=== PATIENT | male | born 1935 | race American Indian/Alaskan Native ===

== ENCOUNTER → 2016-08-01 | Day surgery (SDC) | payer OTHER ==
[~2016-08-01] MED LIST: BUPIVACAINE/EPINEPHRINE 0.25% 50 ML VIAL ONE; KETOROLAC TROMETHAMINE 30 MG/ML (IVP) VIAL IV PUSH ONE; LACTATED RINGER'S 1000 ML INJ 1,000 ML ONE; LIDOCAINE 1%/EPINEPHrine 1:100,000 SOLN 20 ML VIAL ONE; PROPOFOL 200 MG/20 ML AMP IV ONE; SODIUM CHLOR 0.9% 250 ML BAG IV ONE; VANCOMYCIN HCL 1000 MG VIAL ONE
--- NOTE | 2016-08-01 12:42 | TN ---
cc: MUKESH BEARD M.D. DATE OF SURGERY 08/01/2016 PREOPERATIVE DIAGNOSIS Right inguinal hernia. POSTOPERATIVE DIAGNOSIS Right inguinal hernia. PROCEDURE Repair right inguinal hernia with mesh. ANESTHESIA TIVA. SURGEON Dr. Beard INDICATIONS This is a pleasant 80-year-old gentleman who has fairly symptomatic reducible right inguinal hernia. Plans were made for above. PROCEDURE The patient is taken to the operating room, placed in supine position. After TIVA anesthesia, his abdomen and groin are prepped with Betadine. Time-out is done. He is given preoperative antibiotic of vancomycin. We make an oblique incision overlying the internal and external ring, dissect down through Pat's fascia identifying the external oblique aponeurosis which is incised. The cord structures and the sac are then surrounded with a Irvine drain. We separate the indirect sac from the cord structures. He has a fairly sizable cord lipoma which is easily reduced. The floor of his canal is somewhat weakened as well. Once we reduce the entirety of the hernia sac, we then place a piece of polypropylene mesh, secure it to the pubic tubercle, Shaheed's ligament and the iliopubic tract out laterally. Tails were then fashioned and secured to themselves and then secured to the internal oblique aponeurosis, all done with 0 Ethibond suture. The medial edge is secured to the conjoined tendon with a 0 Ethibond. After this was done, we then snugged up the crotch of the mesh to recreate the internal ring leaving enough laxity for the cord structures of the vas deferens and the blood vessels. After that was done, we then closed the external oblique aponeurosis with a 2-0 Vicryl, Pat's with a 2-0 Vicryl and the skin with 4-0 Vicryl. Steri-Strips applied, sterile bandage applied. The patient tolerated the procedure well and had no immediate postop complication. Mukesh Beard MD JROSIBEL/DON /12:25 PM /12:33 PM
== END | disposition home or self-care (01) ==
LOC: ESDC 08:36
PROVIDERS: ATTEND Surgery
DX: K40.90 Unilateral inguinal hernia, without obstruction or gangrene, not specified as recurrent (principal)
CPT/HCPCS: 00830; 49505; C1781; J1885; J3010; J3370; J7050; J7120

== ENCOUNTER 2017-11-10 09:02 | Emergency (ER) | payer OTHER ==
[~2017-11-10] VITALS: Ht 177.8 cm; Wt 83.5 kg
[2017-11-10 09:06] VITALS: BP 160/83; PULSE 75; RESP 16; TEMP 98; O2SAT 92
[2017-11-10 09:18] VITALS: BP 163/90; PULSE 89; RESP 21; O2SAT 96
--- NOTE | 2017-11-10 09:27 | PD ---
HPI Chief Complaint: Complaint Time Seen by Provider: 09:20 Travel History International Travel<30 days: No Contact w/Intl Traveler<30days: No Traveled to known affect area: No History of Present Illness HPI The patient is a 82-year-old male who presents to the emergency department for hematuria. The patient states he developed some right lower quadrant abdominal pain several days ago which resolved after 1 day. The patient then developed hematuria. He does note gross blood via urination for the last 2 days but denies any dysuria, frequency, or urgency. He does have a previous history of hematuria secondary to nephrolithiasis and underwent lithotripsy with a complication involving the left kidney and bleeding at that time. However, he states that procedure was done years ago. He denies any nausea, vomiting, or upper abdominal pain, or back pain. Symptoms are moderate. He does take a baby aspirin daily but does not take any other anticoagulants. The patient is followed by his oncologist "Dr. De La Rosa "who is located in [place], [place], for myeloproliferative disorder with recent elevated white count of 21,000. He is not currently on chemotherapy. He is also seen a urologist in the past, Dr. Woodard. The patient currently denies any abdominal pain. 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) Kidney Stones: Yes Reproductive: Yes (BPH) Influenza Vaccination: No ?: Not Past Surgical History Appendectomy: Yes Cholecystectomy: Yes Other Surgery: Yes (HERNIA, LITHOTRIPSY) Social History Alcohol Use: No (RARELY) Tobacco Use: Yes Substance Use: No Allergies-Medications (Allergen,Severity, Reaction): Coded Allergies: Penicillins (Verified Allergy, Unknown, 11/10/17) Reported Meds & Prescriptions Reported Meds & Active Scripts Active Reported Probiotic (Saccharomyces Boulardii) 250 Mg Cap 250 Mg PO DAILY Aspirin 81 Mg Chew 81 Mg CHEW DAILY Sentry Adults Under 50 (Multiple Vitamins W/ Minerals) 18 Mg-500 Mcg-300 Mcg- 250 Mcg Tab 1 Tab PO DAILY Vitamin B-12 (Cyanocobalamin) 1,000 Mcg Tab 1,000 Mcg PO DAILY Vitamin C (Ascorbic Acid) 250 Mg Chew 500 Mg CHEW DAILY Niacin 500 Mg Tab 500 Mg PO DAILY Sertraline (Sertraline HCl) 100 Mg Tab 100 Mg PO DAILY Doxazosin (Doxazosin Mesylate) 8 Mg Tab 8 Mg PO DAILY Finasteride 5 Mg Tab 5 Mg PO DAILY Do not crush. Review of Systems Except as stated in HPI: all other systems reviewed are Neg General / Constitutional: No: Fever HENT: No: Lightheadedness Cardiovascular: No: Chest Pain or Discomfort Respiratory: No: Shortness of Breath Gastrointestinal: Positive: Abdominal Pain (Right lower quadrant pain 2 days ago which has), No: Nausea, Vomiting, Diarrhea Genitourinary: Positive: Hematuria, No: Urgency, Frequency, Dysuria Neurologic: No: Dizziness Physical Exam Narrative GENERAL: Awake, alert, pleasant 82-year-old male who appears his stated age and is in no acute respiratory distress. SKIN: Focused skin assessment warm/dry. HEAD: Atraumatic. Normocephalic. EYES: No injection or drainage. NECK: Trachea midline. No JVD. CARDIOVASCULAR: Regular rate and rhythm. No murmur appreciated. RESPIRATORY: No accessory muscle use. Clear to auscultation. Breath sounds equal bilaterally. GASTROINTESTINAL: Abdomen soft, non-tender, nondistended. Well-healed scar right lower quadrant. No rebound tenderness. Genitourinary: Uncircumcised phallus, skin is easily retracted, no visible blood at the meatus. Back: No CVA tenderness. MUSCULOSKELETAL: No obvious deformities. No clubbing. No cyanosis. No edema. NEUROLOGICAL: Awake and alert. No obvious cranial nerve deficits. Motor grossly within normal limits. Normal speech. PSYCHIATRIC: Appropriate mood and affect; insight and judgment normal. Data Data Last Documented VS Vital Signs Date Time Temp Pulse Resp B/P (MAP) Pulse Ox O2 Delivery O2 Flow Rate FiO2 11/10/17:18 89 21 163/90 (114) 96 Room Air 11/10/17 09:06 98.0 Orders Orders Complete Blood Count With Diff (11/10/17 09:20) Comprehensive Metabolic Panel (11/10/17 09:20) Urinalysis - C+S If Indicated (11/10/17 09:20) Ct Abd/Pel W/O Iv Contrast (11/10/17 09:20) Iv Access Insert/Monitor (11/10/17 09:20) Ecg Monitoring (11/10/17 09:20) Oximetry (11/10/17 09:20) Sodium Chloride 0.9% Flush (Ns Flush) (11/10/17 09:30) Creatine Kinase (Cpk) (11/10/17 09:20) Urine Culture (11/10/17 08:00) Ciprofloxacin 400 Mg Premix (Cipro 400 M (11/10/17 11:15) Ed Discharge Order (11/10/17 12:06) Labs Laboratory Tests Test 11/10/17 08:00 11/10/17 09:30 Urine Color RED Urine Turbidity HAZY Urine pH 6.0 Urine Specific [place] 1.011 Urine Protein 100 mg/dL Urine Glucose (UA) NEG mg/dL Urine Ketones NEG mg/dL Urine Occult Blood LARGE Urine Nitrite NEG Urine Bilirubin NEG Urine Urobilinogen LESS THAN 2.0 MG/DL Urine Leukocyte Esterase TRACE Urine RBC /hpf Urine WBC 16 /hpf Urine Renal Epithelial Cells 5 /hpf Microscopic Urinalysis Comment CULTURE INDICATED White Blood Count 23.3 TH/MM3 Red Blood Count 5.76 MIL/MM3 Hemoglobin 14.1 GM/DL Hematocrit 44.3 % Mean Corpuscular Volume 76.9 FL Mean Corpuscular Hemoglobin 24.5 PG Mean Corpuscular Hemoglobin Concent 31.9 % Red Cell Distribution Width 17.7 % Platelet Count 321 TH/MM3 Mean Platelet Volume 9.1 FL Neutrophils (%) (Auto) 81.4 % Lymphocytes (%) (Auto) 8.7 % Monocytes (%) (Auto) 7.2 % Eosinophils (%) (Auto) 2.0 % Basophils (%) (Auto) 0.7 % Neutrophils # (Auto) 19.0 TH/MM3 Lymphocytes # (Auto) 2.0 TH/MM3 Monocytes # (Auto) 1.7 TH/MM3 Eosinophils # (Auto) 0.5 TH/MM3 Basophils # (Auto) 0.2 TH/MM3 CBC Comment AUTO DIFF Differential Total Cells Counted 100 Neutrophils % (Manual) 77 % Band Neutrophils % 11 % Lymphocytes % 7 % Monocytes % 3 % Eosinophils % 1 % Neutrophils # (Manual) 20.7 TH/MM3 Myelocytes 1 % Differential Comment FINAL DIFF MANUAL Platelet Estimate NORMAL Platelet Morphology Comment NORMAL Ovalocytes 1+ Blood Urea Nitrogen 15 MG/DL Creatinine 1.14 MG/DL Random Glucose 117 MG/DL Total Protein 6.3 GM/DL Albumin 3.8 GM/DL Calcium Level 8.5 MG/DL Alkaline Phosphatase 104 U/L Aspartate Amino Transf (AST/SGOT) 23 U/L Alanine Aminotransferase (ALT/SGPT) 20 U/L Total Bilirubin 0.4 MG/DL Sodium Level 144 MEQ/L Potassium Level 4.3 MEQ/L Chloride Level 112 MEQ/L Carbon Dioxide Level 26.6 MEQ/L Anion Gap 5 MEQ/L Estimat Glomerular Filtration Rate 61 ML/MIN Total Creatine Kinase 33 U/L [facility] Medical Decision Making Medical Screen Exam Complete: Yes Emergency Medical Condition: Yes Medical Record Reviewed: Yes Interpretation(s) Laboratory Tests Test 11/10/17 08:00 11/10/17 09:30 Urine Color RED Urine Turbidity HAZY Urine pH 6.0 Urine Specific [place] 1.011 Urine Protein 100 mg/dL Urine Glucose (UA) NEG mg/dL Urine Ketones NEG mg/dL Urine Occult Blood LARGE Urine Nitrite NEG Urine Bilirubin NEG Urine Urobilinogen LESS THAN 2.0 MG/DL Urine Leukocyte Esterase TRACE Urine RBC /hpf Urine WBC 16 /hpf Urine Renal Epithelial Cells 5 /hpf Microscopic Urinalysis Comment CULTURE INDICATED White Blood Count 23.3 TH/MM3 Red Blood Count 5.76 MIL/MM3 Hemoglobin 14.1 GM/DL Hematocrit 44.3 % Mean Corpuscular Volume 76.9 FL Mean Corpuscular Hemoglobin 24.5 PG Mean Corpuscular Hemoglobin Concent 31.9 % Red Cell Distribution Width 17.7 % Platelet Count 321 TH/MM3 Mean Platelet Volume 9.1 FL Neutrophils (%) (Auto) 81.4 % Lymphocytes (%) (Auto) 8.7 % Monocytes (%) (Auto) 7.2 % Eosinophils (%) (Auto) 2.0 % Basophils (%) (Auto) 0.7 % Neutrophils # (Auto) 19.0 TH/MM3 Lymphocytes # (Auto) 2.0 TH/MM3 Monocytes # (Auto) 1.7 TH/MM3 Eosinophils # (Auto) 0.5 TH/MM3 Basophils # (Auto) 0.2 TH/MM3 CBC Comment AUTO DIFF Differential Total Cells Counted 100 Neutrophils % (Manual) 77 % Band Neutrophils % 11 % Lymphocytes % 7 % Monocytes % 3 % Eosinophils % 1 % Neutrophils # (Manual) 20.7 TH/MM3 Myelocytes 1 % Differential Comment FINAL DIFF MANUAL Platelet Estimate NORMAL Platelet Morphology Comment NORMAL Ovalocytes 1+ Blood Urea Nitrogen 15 MG/DL Creatinine 1.14 MG/DL Random Glucose 117 MG/DL Total Protein 6.3 GM/DL Albumin 3.8 GM/DL Calcium Level 8.5 MG/DL Alkaline Phosphatase 104 U/L Aspartate Amino Transf (AST/SGOT) 23 U/L Alanine Aminotransferase (ALT/SGPT) 20 U/L Total Bilirubin 0.4 MG/DL Sodium Level 144 MEQ/L Potassium Level 4.3 MEQ/L Chloride Level 112 MEQ/L Carbon Dioxide Level 26.6 MEQ/L Anion Gap 5 MEQ/L Estimat Glomerular Filtration Rate 61 ML/MIN Total Creatine Kinase 33 U/L CT abdomen and pelvis without contrast reveals 3 small stones right kidney 2 mm stone right UVJ. Enlarged prostate distended bladder, large diverticulum with stones. At least one small stone in the bladder as well. Massive splenic megaly. Differential Diagnosis Differential diagnosis includes gross hematuria, hemorrhagic cystitis, bladder tumor, bladder cancer, coagulopathy, symptomatic anemia, nephrolithiasis, hyperbilirubinemia, rhabdomyolysis. Narrative Course IV was established, labs are drawn and sent, and the patient was placed on cardiac telemetry monitoring and continuous pulse oximetry monitoring. UA was sent to lab. Noncontrast CT of the abdomen and pelvis was performed. UA reveals innumerable RBCs, does have 16 WBCs, however, appears to be more related to the patient is currently asymptomatic, will discharge home with pain medications as needed if pain returns. He is advised to follow-up with his urologist, Dr. brizuela. Return if symptoms worsen or progress. The patient does have elevated white count, but has history of myeloproliferative disorder with last white count in the 20s, bands are slightly elevated, will treat with Cipro. Diagnosis Primary Impression: Nephrolithiasis Additional Impression: Gross hematuria Referrals: Evens Woodard MD call for appointment Patient Instructions: General Instructions Additional Instructions: Medications as directed. Please provide the patient a copy of his CT results and lab results at discharge. Follow-up with your primary physician and your urologist, Dr. Woodard. Med/Other Pt SpecificInfo: Prescription(s) given Scripts Ciprofloxacin (Cipro) 500 Mg Tab 500 MG PO BID for Infection for 7 Days, #14 TAB 0 Refills Prov: Pepe Christianson MD 11/10/17 Disposition: DISCHARGE HOME Condition: Stable Pepe Christianson MD Nov 10, 2017 09:27
[2017-11-10] MEDS ORDERED: SODIUM CHLORIDE 0.9% FLUSH 10 ML FLUSH IV FLUSH PRN (09:30)
[2017-11-10] MEDS ORDERED: VITA250C3 CHEW (09:48)
[2017-11-10] MEDS ORDERED: MULT1TAB83 PO (09:48)
[2017-11-10] MEDS ORDERED: DOXA1TAB43 PO (09:48)
[2017-11-10] MEDS ORDERED: NIAC500T5 PO (09:48)
[2017-11-10] MEDS ORDERED: SERT-129 PO (09:48)
[2017-11-10] MEDS ORDERED: ASPI-516 CHEW (09:48)
[2017-11-10] MEDS ORDERED: VITA10002 PO (09:48)
[2017-11-10] MEDS ORDERED: FINA5TAB2 PO (09:48)
[2017-11-10] MEDS ORDERED: SACC1CAP3 PO (09:48)
[2017-11-10 09:52] LABS: BASOPHIL # 0.2 TH/MM3 (0-0.2); BASOPHIL % 0.7 % (0.0-2.0); EOSINOPHIL # 0.5 TH/MM3 (0-0.4); HEMATOCRIT 44.3 % (39.0-51.0); HEMOGLOBIN 14.1 GM/DL (13.0-17.0); LYMPH % 8.7 % (9.0-44.0); MEAN CELL VOLUME 76.9 FL (80.0-100.0); MEAN CORPUSCULAR HEMOGLOBIN 24.5 PG (27.0-34.0); MEAN CORPUSCULAR HGB CONC 31.9 % (32.0-36.0); MEAN PLATELET VOLUME 9.1 FL (7.0-11.0); MONO % 7.2 % (0.0-8.0); MONOCYTE # 1.7 TH/MM3 (0-0.9); NEUT % 81.4 % (16.0-70.0); PLATELET COUNT 321 TH/MM3 (150-450); RED BLOOD COUNT 5.76 MIL/MM3 (4.50-5.90); RED CELL DISTRIBUTION WIDTH 17.7 % (11.6-17.2); WHITE BLOOD COUNT 23.3 TH/MM3 (4.0-11.0)
[2017-11-10 10:16] LABS: ALBUMIN 3.8 GM/DL (3.4-5.0); AST (GOT) 23 U/L (15-37); BICARBONATE 26.6 MEQ/L (21.0-32.0); BLOOD UREA NITROGEN 15 MG/DL (7-18); CALCIUM 8.5 MG/DL (8.5-10.1); CHLORIDE 112 MEQ/L (98-107); CREATININE 1.14 MG/DL (0.60-1.30); GLOMERULAR FILTRATION RATE 61 ML/MIN (>89); GLUCOSE,RANDOM 117 MG/DL (74-106); SODIUM (NA) 144 MEQ/L (136-145)
[2017-11-10 10:19] LABS: ALKALINE PHOSPHATASE 104 U/L (45-117); ALT (GPT) 20 U/L (12-78); TOTAL BILIRUBIN ADULT 0.4 MG/DL (0.2-1.0); TOTAL PROTEIN 6.3 GM/DL (6.4-8.2)
[2017-11-10 10:22] LABS: BILIRUBIN, URINE NEG (NEG); BLOOD, URINE LARGE (NEG); GLUCOSE,URINE NEG (NEG); KETONE, URINE NEG (NEG); NITRITE,URINE NEG (NEG); RENAL EPITHELIAL CELLS 5 /hpf; URINE LEUKOCYTE ESTERASE TRACE (NEG)
[2017-11-10 10:23] LABS: URINE COLOR RED (YELLW/STRAW)
[2017-11-10 10:25] LABS: BANDS 11 % (0-6); LYMPHOCYTES 7 % (9-44); MONOCYTES 3 % (0-8); MYELOCYTES 1 % (0-0); NEUTROPHIL # MANUAL DIFF 20.7 TH/MM3 (1.8-7.7); POLYS (SEG NEUTROPHILS) 77 % (16-70)
[2017-11-10 10:26] LABS: OVALOCYTES 1+ (NORMAL)
[2017-11-10 11:00] VITALS: BP 149/70; PULSE 73; RESP 18; O2SAT 95
[2017-11-10] MEDS ORDERED: CIPROFLOXACIN 400 MG PREMIX 200 ML IV ONE (11:15)
--- NOTE | 2017-11-10 11:49 | RADRPT ---
EXAM DATE/TIME: 11/10/2017 11:25 [facility] COMPARISON: No previous studies available for comparison. INDICATIONS : Blood in urine since Saturday. ORAL CONTRAST: No oral contrast ingested. RADIATION DOSE: 11.95 CTDIvol (mGy) MEDICAL HISTORY : Renal calculi. Myeloproliferatine. SURGICAL HISTORY : Inguinal hernia repair. Lithotripsy ENCOUNTER: Initial ACUITY: 2 days PAIN SCALE: 0/10 LOCATION: abdominal TECHNIQUE: Volumetric scanning of the abdomen and pelvis was performed. Using automated exposure control and ad justment of the mA and/or kV according to patient size, radiation dose was kept as low as reasonably achievable to obtain optimal diagnostic quality images. DICOM format image data is available electro nically for review and comparison. FINDINGS: Massive splenomegaly . Inhomogeneous liver liver. Surgical clips gallbladder fossa. Pancreas and adrenal glands unremarkable. 3.3 symmetr left renal cyst 3 stones right kidney largest measuring 7 mm without perinephric stranding. There is 2 mm stone at t he right UVJ. Bladder is distended with large prostate. There is a larged bladder diverticulum measuring 7 cm with multiple small stones. Multiple stones are seen in the bladder as well.. The abdominal mike intact There is no free fluid or free air CONCLUSION: 3 small stones right kidney 2 mm stone right UVJ Enlarged prostate distended bladder the large diverticulum with stones. At least one small stone in the bladder as well. Massive splenomegaly. Telly Mendoza MD FACR on November 10, 2017 at 11:38 Board Certified Radiologist. This report was verified electronically.
[2017-11-10] MEDS ORDERED: CIPR-9 PO (12:09)
[2017-11-10 12:17] VITALS: BP 147/91; PULSE 73; RESP 18; O2SAT 95
[2017-11-10 13:47] VITALS: BP 150/72; PULSE 77; RESP 18; O2SAT 95
== END 2017-11-10 14:05 | disposition home or self-care (01) ==
LOC: NEPC 09:02
DX: N20.0 Calculus of kidney (principal); N21.0 Calculus in bladder; R31.0 Gross hematuria; N40.0 Benign prostatic hyperplasia without lower urinary tract symptoms; C94.6 Myelodysplastic disease, not elsewhere classified; F32.9 Major depressive disorder, single episode, unspecified; Z72.0 Tobacco use
CPT/HCPCS: 74176; 80053; 81001; 82550; 85007; 85027; 87086; 96365; 99284; J0744

== ENCOUNTER 2017-12-26 16:00 | Observation (INO) | payer OTHER ==
[~2017-12-26] VITALS: Ht 175.3 cm; Wt 85.6 kg
[~2017-12-26 16:00] MED LIST changes: +ASPI-516 CHEW; -BUPIVACAINE/EPINEPHRINE 0.25% 50 ML VIAL ONE; +CIPR-9 PO; +DOXA1TAB43 PO; +FINA5TAB2 PO; -KETOROLAC TROMETHAMINE 30 MG/ML (IVP) VIAL IV PUSH ONE; -LACTATED RINGER'S 1000 ML INJ 1,000 ML ONE; -LIDOCAINE 1%/EPINEPHrine 1:100,000 SOLN 20 ML VIAL ONE; +MULT1TAB83 PO; +NIAC500T5 PO; -PROPOFOL 200 MG/20 ML AMP IV ONE; +SACC1CAP3 PO; +SERT-129 PO; -SODIUM CHLOR 0.9% 250 ML BAG IV ONE; -VANCOMYCIN HCL 1000 MG VIAL ONE; +VITA10002 PO; +VITA250C3 CHEW
[2017-12-26 17:46] VITALS: BP 185/84; PULSE 72; RESP 20; TEMP 98.3; O2SAT 93
[2017-12-26 20:00] VITALS: BP 178/86; PULSE 69; RESP 18; TEMP 97.9; O2SAT 94
[2017-12-26] MEDS: DOCUSATE SODIUM 100 MG CAP PO SCH (21:00)
[2017-12-26] MEDS: CIPROFLOXACIN 500 MG TAB PO SCH (21:04)
[2017-12-26] MEDS: MULTIVITAMINS/MINERALS THERAPEUTIC TAB PO SCH (21:04)
[2017-12-26] MEDS: ACETAMINOPHEN/HYDROcodone 325 MG/5 MG TAB PO PRN (22:19)
[2017-12-27] VITALS: BP 194/79; PULSE 65; RESP 18; TEMP 98.2; O2SAT 95
[2017-12-27 00:46] VITALS: BP 168/84
[2017-12-27 08:00] VITALS: BP 166/72; PULSE 61; RESP 18; TEMP 97.9; O2SAT 92
[2017-12-27] MEDS: LACTOBACILLUS ACIDOPHILUS 1 GM PACKET PO SCH (09:00)
[2017-12-27] MEDS ORDERED: MINERALS PO SCH (09:00)
[2017-12-27] MEDS ORDERED: NON-FORMULARY DRUG (Saccharomyces Boulardii (Probiotic) 250 MG) PO SCH (09:00)
[2017-12-27] MEDS ORDERED: MULTIPLE VITAMINS PO SCH (09:00)
[2017-12-27] MEDS ORDERED: NON-FORMULARY DRUG (Ascorbic Acid (Vitamin C) 500 MG) CHEW SCH (09:00)
[2017-12-27] MEDS ORDERED: NON-FORMULARY DRUG (Niacin 500 MG) PO SCH (09:00)
[2017-12-27] MEDS: SERTRALINE HCL 100 MG TAB PO SCH (09:06)
[2017-12-27] MEDS: NIACIN 100 MG TAB PO SCH (09:07)
[2017-12-27] MEDS: MULTIVITAMINS/MINERALS THERAPEUTIC TAB PO SCH (09:07)
[2017-12-27] MEDS: DOCUSATE SODIUM 100 MG CAP PO SCH ×2 (09:07→20:07)
[2017-12-27] MEDS: DOXAZOSIN MESYLATE 4 MG TAB PO SCH (09:07)
[2017-12-27] MEDS: ASCORBIC ACID 500 MG TAB PO SCH (09:08)
[2017-12-27] MEDS: CIPROFLOXACIN 500 MG TAB PO SCH ×2 (09:08→20:03)
[2017-12-27] MEDS: CYANOCOBALAMIN 1,000 MCG TAB PO SCH (09:08)
[2017-12-27] MEDS: FINASTERIDE 5 MG TAB PO SCH (09:08)
[2017-12-27] MEDS: ACETAMINOPHEN/HYDROcodone 325 MG/5 MG TAB PO PRN ×2 (11:29→20:03)
[2017-12-27 12:00] VITALS: BP 121/70; PULSE 71; RESP 18; TEMP 97.3; O2SAT 91
--- NOTE | 2017-12-27 13:25 | HHI.PR ---
Subjective Patient symptoms today 82y.o m who was admitted yesterday after cystoscopy at the office and development of hematuria. He has clark catheter now, 3 way was on CBI. Urine was clear, CBI was closed and later his catheetr got clogged and he developed clot retention. Had back and s/pubic pain. clots were irrigated out. He has no pain now and feels better. CBI left closed Objective Vital Signs Vital Signs Date Time Temp Pulse Resp B/P (MAP) Pulse Ox O2 Delivery O2 Flow Rate FiO2 12/27/17 00:46 168/84 (112) Automatic Cuff 12/27/17 00:00 98.2 65 18 194/79 (117) 95 12/26/17 20:00 97.9 69 18 178/86 (116) 94 12/26/17 17:46 98.3 72 20 185/84 (117) 93 Intake & Output 12/27/17 12/27/17 06:59 18:59 Intake Total 480 ml Output Total 2500 ml 300 ml Balance -2020 ml -300 ml Intake Oral 480 ml Output Urine Total 2500 ml 300 ml # Bowel Movements 0 Objective Remarks NAD RRR Clear breath sounds Clark in in place, urine is clear Medications and IVs Current Medications Medications (Trade) Dose Ordered Sig/Maria R Route Start Time Stop Time Status Last Admin (Colace) 100 mg BID PO 12/26/17 21:00 12/27/17 09:07 ([place] 5-325 Mg) 2 tab Q6H PRN PO 12/26/17 19:45 12/27/17 11:29 (Cipro) 500 mg Q12HR PO 12/26/17 21:00 12/27/17 09:08 (Vitamin B12) 1,000 mcg DAILY PO 12/27/17 09:00 12/27/17 09:08 (Cardura) 8 mg DAILY PO 12/27/17 09:00 12/27/17 09:07 (Proscar) 5 mg DAILY PO 12/27/17 09:00 12/27/17 09:08 (Zoloft) 100 mg DAILY PO 12/27/17 09:00 12/27/17 09:06 (Vitamin C) 500 mg DAILY PO 12/27/17 09:00 12/27/17 09:08 (Theragran M Tab) 1 tab DAILY PO 12/26/17 19:45 12/27/17 09:07 (Niacin) 500 mg DAILY PO 12/27/17 09:00 12/27/17 09:07 (Lactinex Pkt) 1 gm DAILY PO 12/27/17 09:00 12/27/17 09:00 Assessment and Plan Assessment and Plan 82 y.o M with BPH and hematuria - Continue current management - Continue observation - Keep CBI closed - If urine remains clear and no clots, can be d/c home with Jeff Sanchez Dec 27, 2017 13:25
[2017-12-27] MEDS: OXYBUTYNIN CHLORIDE 5 MG TAB PO SCH ×2 (13:30→18:14)
[2017-12-27 16:00] VITALS: BP 122/62; PULSE 70; RESP 16; TEMP 97.4; O2SAT 92
[2017-12-27 20:00] VITALS: BP 174/80; PULSE 76; RESP 22; TEMP 97.6; O2SAT 93
[2017-12-27] MEDS: BELLADONNA ALKALOIDS/OPIUM 60 MG SUPP RECTAL PRN (23:32)
[2017-12-28] VITALS: BP 179/82; PULSE 79; RESP 22; TEMP 97.4; O2SAT 94
[2017-12-28] MEDS: ACETAMINOPHEN/HYDROcodone 325 MG/5 MG TAB PO PRN (04:15)
[2017-12-28 05:04] VITALS: BP 149/73; PULSE 87; RESP 20; TEMP 97.4; O2SAT 93
[2017-12-28] MEDS: LACTOBACILLUS ACIDOPHILUS 1 GM PACKET PO SCH (07:54)
[2017-12-28] MEDS: NIACIN 100 MG TAB PO SCH (07:54)
[2017-12-28] MEDS: CYANOCOBALAMIN 1,000 MCG TAB PO SCH (07:55)
[2017-12-28] MEDS: MULTIVITAMINS/MINERALS THERAPEUTIC TAB PO SCH (07:55)
[2017-12-28] MEDS: FINASTERIDE 5 MG TAB PO SCH (07:55)
[2017-12-28] MEDS: ASCORBIC ACID 500 MG TAB PO SCH (07:55)
[2017-12-28] MEDS: DOXAZOSIN MESYLATE 4 MG TAB PO SCH (07:56)
[2017-12-28] MEDS: SERTRALINE HCL 100 MG TAB PO SCH (07:56)
[2017-12-28] MEDS: CIPROFLOXACIN 500 MG TAB PO SCH (07:56)
[2017-12-28] MEDS: BELLADONNA ALKALOIDS/OPIUM 60 MG SUPP RECTAL PRN ×2 (07:57→14:03)
[2017-12-28] MEDS: DOCUSATE SODIUM 100 MG CAP PO SCH (07:57)
[2017-12-28 08:00] VITALS: BP 161/76; PULSE 73; RESP 18; TEMP 97.6; O2SAT 92
[2017-12-28 12:00] VITALS: BP 112/57; PULSE 88; RESP 18; TEMP 97.6; O2SAT 94
--- NOTE | 2017-12-28 12:16 | HHI.PR ---
Subjective Patient symptoms today catheter exchanged earlier this morning after clotting off. Has been flowing well since 5 am. Denies abdominal pain, fevers, chills, nausea. Objective Vital Signs Vital Signs Date Time Temp Pulse Resp B/P (MAP) Pulse Ox O2 Delivery O2 Flow Rate FiO2 12/28/17 08:00 97.6 73 18 161/76 (104) 92 12/28/17 05:04 97.4 87 20 149/73 (98) 93 12/28/17 00:00 97.4 79 22 179/82 (114) 94 12/27/17 20:00 97.6 76 22 174/80 (111) 93 12/27/17 16:00 97.4 70 16 122/62 (82) 92 Intake & Output 12/28/17 12/28/17 07:00 19:00 Intake Total 1840 ml Output Total 2250 ml 600 ml Balance -410 ml -600 ml Intake Oral 1840 ml Output Urine Total 2250 ml 600 ml # Bowel Movements 2 Objective Remarks NAD RRR Clear breath sounds Clark in in place, urine is clear, very slow CBI drip Ext NT. No c/c/e Medications and IVs Current Medications Medications (Trade) Dose Ordered Sig/Maria R Route Start Time Stop Time Status Last Admin (Colace) 100 mg BID PO 12/26/17 21:00 12/28/17 07:57 ([place] 5-325 Mg) 2 tab Q6H PRN PO 12/26/17 19:45 12/28/17 04:15 (Cipro) 500 mg Q12HR PO 12/26/17 21:00 12/28/17 07:56 (Vitamin B12) 1,000 mcg DAILY PO 12/27/17 09:00 12/28/17 07:55 (Cardura) 8 mg DAILY PO 12/27/17 09:00 12/28/17 07:56 (Proscar) 5 mg DAILY PO 12/27/17 09:00 12/28/17 07:55 (Zoloft) 100 mg DAILY PO 12/27/17 09:00 12/28/17 07:56 (Vitamin C) 500 mg DAILY PO 12/27/17 09:00 12/28/17 07:55 (Theragran M Tab) 1 tab DAILY PO 12/26/17 19:45 12/28/17 07:55 (Niacin) 500 mg DAILY PO 12/27/17 09:00 12/28/17 07:54 (Lactinex Pkt) 1 gm DAILY PO 12/27/17 09:00 12/28/17 07:54 (Ditropan) 5 mg Q12HR PO 12/27/17 13:30 Future Hold (B & O Supp) 60 mg Q6H PRN RECTAL 12/27/17 23:15 12/28/17 07:57 Assessment and Plan Assessment and Plan 82 y.o M with BPH and hematuria -clamp CBI -Observe rest of this afternoon. If no issues, d/c home with clark. will remove on December 30. Evens Woodard MD Dec 28, 2017 12:16
[2017-12-28] MEDS ORDERED: DOCU1CAP39 PO (12:18)
[2017-12-28] MEDS ORDERED: HYDR-3516 PO (12:18)
== END 2017-12-28 17:26 | disposition home or self-care (01) ==
LOC: N07A 16:00
PROVIDERS: ADMIT Urology; ATTEND Urology
DX: R31.9 Hematuria, unspecified (principal); N20.0 Calculus of kidney; N40.0 Benign prostatic hyperplasia without lower urinary tract symptoms
CPT/HCPCS: G0378 ×4

== ENCOUNTER 2018-02-04 05:29 | Inpatient (IN) ==
[2018-02-04] MEDS ORDERED: Metoprolol Tartrate 25 MG Tablet PO SCH (06:30)
[2018-02-04] MEDS ORDERED: Chlorhexidine Gluconate 2% 1 Pack (2 Cloths) TOPICAL SCH (06:30)
[2018-02-04] MEDS ORDERED: Sodium Chlor 0.9% Inj 500 ML IV.SIG SCH (07:00)
[2018-02-04] MEDS ORDERED: [UNRECOGNIZED DRUG - OTHER] OTHER SCH (07:00)
[2018-02-04 07:40] LABS: INR 1.2 Ratio
[2018-02-04] MEDS ORDERED: ceFAZolin 2 GM Premix Inj 2 GM/50 ML PIGGYBACK IV.SIG ONE (07:45)
[2018-02-04] MEDS ORDERED: Calcium Chloride Inj 1 GM/10 ML Syringe ONE (08:42)
[2018-02-04] MEDS ORDERED: Sugammadex Inj 200 MG/2 ML Vial IV.PUSH ONE (10:09)
[2018-02-04 10:31] LABS: Hematocrit 35.2 % (39.0-51.0); Hemoglobin 11.1 gm/dL (13.0-17.0)
[2018-02-04 10:39] LABS: Activated Partial Thrombo Time 28.1 sec (24.3-30.1); INR 1.3 Ratio; Prothrombin Time 13.2 sec (9.8-11.6)
[2018-02-04] MEDS ORDERED: Morphine Inj 4 MG/ML Vial IV.PUSH PRN (10:46)
[2018-02-04] MEDS ORDERED: Belladonna Alkaloid/Opium 60 MG Supp RECTAL PRN (10:52)
[2018-02-04] MEDS ORDERED: Non-Formulary Drug (Albuterol Sulfate 2 PUFF) INHALATION PRN (10:53)
--- NOTE | 2018-02-04 10:53 | MP ---
cc: Celestino Whitlock MD DATE OF OPERATION: 02/04/2018 PREOPERATIVE DIAGNOSES: 1. 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 3. Vesical lithiasis. POSTOPERATIVE DIAGNOSES: 1. 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 3. Vesical lithiasis. PROCEDURE PERFORMED: 1. Simple retropubic prostatectomy for clinically benign disease. 2. Left bladder diverticulectomy. 3. Left ureteral reimplantation. 4. Left double-J stent insertion 6-Liberian x 26 cm. SURGEON: Dr. Evens Woodard. CAREER AND TRANSITION TEACHER: Dr. Celestino Whitlock NOTE IN DETAIL: This gentleman presented to our office for the above-mentioned problem. He has been followed by other urologists for this issue in the past. He finally had reached the point that something had to be done, his prostate was estimated to be well in excess of 100 grams and, given the fact that he had a bladder diverticulum on the left with stones present, it was nearly the size of the bladder itself. It was felt that an open procedure was appropriate. He received appropriate preoperative antibiotics in the holding area. He was taken to the operating room, given a general anesthetic. A timeout was taken for identification purposes. He was then placed in a slightly hyperextended supine position and he was then prepped and draped in a sterile fashion and a Monaco catheter was inserted. A midline incision was made from the symphysis pubis to the umbilicus and carried down into the space of Retzius, which was then developed and packed off bilaterally. Appropriate sutures were placed on the prostate itself and then a transverse capsulotomy performed. The gland was rather large, it was very vascular indeed. There was a large quantity of purulent material extruded from a pocket within the prostate, so the prostate had clearly outgrown its own blood supply. Once this was completed and hemostasis was tended with the use of the electrocautery and multiple sutures, we then turned our attention to the diverticulum on the left-hand side, which with blunt and sharp dissection, was taken off of the bladder wall. It was also significantly adhesed to the left ureter. This caused us to have to actually peel the ureter up, off and you could just peel the bladder off, but this was not the case here. We had to dissect the ureter away from the bladder and from the diverticulum. We used an feeding tube to protect the ureter during the process of this. Ultimately, we got the diverticulum completely off. All of the stones were taken out in their entirety and submitted for identification purposes/documentation purposes. The 6-Liberian x 26 cm double-J stent was placed up the left ureter. The ureter was laid back into its normal anatomic position and the bladder mucosa pexed with multiple interrupted 4-0 Vicryl ligatures to prevent this from retracting into the perivesical space and the os of the diverticulum was then oversewn in a couple of layers as well. So once the diverticulum was taking care of him and once the left ureter was pexed back on the posterior wall and the double-J stent was seen to be in good position, then a 22-Liberian Monaco catheter with a 30 mL balloon was guided into the gentleman's bladder, inflated to initially 5 mL The transverse capsulotomy was closed with 0 Vicryl running ligature and then the balloon inflated to about 50 mL and placed on gentle gauze traction and irrigated until clear. A Karan-Pro flat drain was placed through a stab wound in the right lower quadrant of his abdomen and to grenade suction. He tolerated the procedure well. Therefore, the external fascia was whipstitched closed and the marie applied to the skin and a [place] dressing applied. His blood loss was estimated somewhere between 1500 and 2000 mL. There is some questions about this secondary to the amount of urine extruded during this time as well as irrigation as well as purulent material obtained, but nonetheless he did receive 2 units of packed red cells intraoperatively. He did tolerate the overall procedure quite well and was returned to the recovery room in stable condition. MD SANYA Ly/MICHI , 10:34 AM , 10:52 AM
[2018-02-04] MEDS ORDERED: *morphine SULFATE 4 MG/ML PERIprocedure ONLY ONE ×2 (10:55→11:24)
[2018-02-04] MEDS ORDERED: fentaNYL Citrate Inj 100 MCG/2 ML Ampul ONE (10:58)
[2018-02-04] MEDS ORDERED: Belladonna Alkaloid/Opium 60 MG Supp RECTAL ONE (10:59)
[2018-02-04] MEDS ORDERED: ARFORMOTEROL 15 MCG INH SCH (11:00)
[2018-02-04] MEDS ORDERED: Sodium Chlor 0.9% Inj 1,000 ML IV.SIG SCH (11:00)
[2018-02-04] MEDS ORDERED: Ketorolac Inj 30 MG/ML (IVP) Vial ONE (11:14)
[2018-02-04] MEDS: Ketorolac Inj 30 MG/ML (IVP) Vial IV.PUSH PRN (11:15)
[2018-02-04] MEDS ORDERED: Lidocaine PF 1% Inj 5 ML Syringe INFILTRATN ONE (12:00)
[2018-02-04] MEDS ORDERED: Phenylephrine/NS 1000 MCG/10ML Syringe IV.PUSH ONE (12:00)
[2018-02-04] MEDS ORDERED: Neostigmine Inj 5 MG/5 ML Syringe IV.PUSH ONE (12:00)
[2018-02-04] MEDS ORDERED: Glycopyrrolate Inj 1 MG/5 ML Syringe IV.PUSH ONE (12:00)
[2018-02-04] MEDS ORDERED: HYDROmorphone PF Inj 2 MG/ML Vial ONE (12:01)
[2018-02-04 12:53] LABS: Baso # (Auto) 0.1 th/mm3 (0.0-0.2); Baso % (Auto) 0.2 % (0.0-2.0); Eos # (Auto) 0.6 th/mm3 (0.0-0.4); Eos % (Auto) 1.8 % (0.0-4.0); Hematocrit 32.9 % (39.0-51.0); Hemoglobin 10.5 gm/dL (13.0-17.0); Lymph # (Auto) 1.2 th/mm3 (1.0-4.8); Lymph % (Auto) 3.7 % (9.0-44.0); Mean Corpuscular HGB Conc 31.9 % (32.0-36.0); Mean Corpuscular Hemoglobin 23.9 pg (27.0-34.0); Mean Corpuscular Volume 74.8 fL (80.0-100.0); Mean Platelet Volume 9.4 fL (7.0-11.0); Mono # (Auto) 1.1 th/mm3 (0.0-0.9); Mono % (Auto) 3.4 % (0.0-8.0); Neut # (Auto) 28.8 th/mm3 (1.8-7.7); Neut % (Auto) 90.9 % (16.0-70.0); Platelet Count 319 th/mm3 (150-450); Red Cell Distribution Width 17.2 % (11.6-17.2); White Blood Count 31.7 th/mm3 (4.0-11.0)
[2018-02-04 12:59] LABS: Calcium 8.4 mg/dL (8.5-10.1); Potassium 4.1 meq/L (3.5-5.1)
[2018-02-04] MEDS ORDERED: Sod Chloride 0.9% Inj 1,000 ML ONE (13:53)
[2018-02-04] MEDS: Pantoprazole Inj 40 MG Vial IV.PUSH SCH (13:58)
[2018-02-04 14:09] LABS: Eosinophils 2 % (0-4); Lymphocytes 1 % (9-44); Monocytes 4 % (0-8); Myelocytes 4 % (0-0)
[2018-02-04 14:10] LABS: Acanthocytes Occ; Ovalocytes 1+; Platelet Estimate Normal (Normal); Platelet Morphology Normal (Normal)
[2018-02-04] MEDS ORDERED: Sod Chloride 0.9% Inj 1,000 ML IV.SIG ONE (15:00)
[2018-02-04] MEDS: Vancomycin Inj 1,000 MG in Sodium Chlor 0.9% Inj 250 ML IV.SIG SCH (16:43)
[2018-02-04] MEDS ORDERED: Gentamicin Inj 300 MG in Sodium Chlor 0.9% Inj 100 ML IV.SIG SCH (17:00)
[2018-02-04] MEDS: Gentamicin Inj 300 MG in Sodium Chlor 0.9% Inj 100 ML IV.SIG SCH (21:59)
[2018-02-05] MEDS: Docusate Sodium 100 MG Capsule PO SCH ×3 (03:19→21:23)
[2018-02-05 07:26] LABS: Hematocrit 31.6 % (39.0-51.0); Mean Corpuscular HGB Conc 31.7 % (32.0-36.0); Mean Corpuscular Hemoglobin 23.6 pg (27.0-34.0); Mean Corpuscular Volume 74.4 fL (80.0-100.0); Platelet Count 289 th/mm3 (150-450); Red Blood Count 4.25 mil/mm3 (4.50-5.90); Red Cell Distribution Width 17.5 % (11.6-17.2); White Blood Count 30.4 th/mm3 (4.0-11.0)
[2018-02-05 07:50] LABS: Calcium 8.2 mg/dL (8.5-10.1); Carbon Dioxide 26.1 meq/L (21.0-32.0); Potassium 4.1 meq/L (3.5-5.1)
[2018-02-05] MEDS: Sertraline 50 MG Tablet PO SCH (08:53)
[2018-02-05] MEDS: Pantoprazole Inj 40 MG Vial IV.PUSH SCH (11:34)
--- NOTE | 2018-02-05 14:52 | P.PNURO ---
Subjective Patient symptoms today: POD #1, Pt was seen at bedside today. NAD, no f/c/n/v. Admits left leg pain, especially when trying to walk. Pain is above the knee. + passing flatus several times. Also admits some rectal pain. H/H stable. + leukocytosis, slightly improving. TIERNEY is draining well, at the time of this visit he had 25cc in it. [place] is draining well light pink urine. He had a short episode of V tach but asymptomatic. It was detected on monitors Objective Vital Signs: Vital Signs 02/04/18 15:00 02/04/18 16:00 02/04/18 20:00 Temperature 97.8 F 97.7 F 97.9 F Pulse Rate 86 90 86 Respiratory Rate 15 16 18 Blood Pressure 106/55 L 103/55 L 110/58 L Pulse Oximetry 93 L 96 95 02/04/18 22:00 02/05/18 00:00 02/05/18 02:00 Temperature 98.1 F Pulse Rate 88 90 92 H Respiratory Rate 21 Blood Pressure 120/56 L Pulse Oximetry 97 02/05/18 04:00 02/05/18 06:00 02/05/18 08:00 Temperature 98.6 F 97.7 F Pulse Rate 93 H 90 92 H Respiratory Rate 28 H Blood Pressure 119/58 L 107/56 L Pulse Oximetry 97 02/05/18 10:00 02/05/18 12:00 Temperature 97.5 F L Pulse Rate 97 H 98 H Respiratory Rate 29 H Blood Pressure 128/61 Pulse Oximetry 95 Intake & Output 02/04/18 02/05/18 02/05/18 18:59 06:59 18:59 Intake Total 8724 / 8724 480 / 480 Output Total 3160 / 3160 1050 / 1050 35 / 35 Balance 5564 / 5564 -570 / -570 -35 / -35 Intake: IV 284 / 284 NS Inj 1,000 ML @ 125 mls/hr IV 284 / 284 .SIG .Q10H VERONIKA Rx#:[id number] Oral 340 / 340 480 / 480 Anesthesia Amount 5000 / 5000 Other 2200 / 2200 Mass Transfusion Protocol 900 / 900 Output: Estimated Blood Loss 2000 / 2000 Urine Amount (Catheter) 1050 / 1050 1050 / 1050 Indwelling Urethral Catheter 1050 / 1050 1050 / 1050 Wound Drainage 110 / 110 35 / 35 Abdomen TIERNEY Drain 110 / 110 35 / 35 Result Diagrams: 02/05/18 07:08 02/05/18 07:08 Medications and IVs: Active Medications Generic Name Dose Route Start Last Admin Trade Name Freq PRN Reason Stop Dose Admin Albuterol 2 puff 02/04/18 11:30 Ventolin Hfa Inh INH Q6H PRN Shortness Of Breath Belladonna Alkaloids/Opium 60 mg 02/04/18 10:52 02/04/18 11:00 B & O Supp RECTAL 60 mg Q6HR PRN Administration BLADDER SPASM Chlorhexidine Gluconate 3 pack 02/04/18 06:30 Chlorhexidine 2% Cloth TOPICAL 02/07/18 06:23 HOOD FITTER [facility] Docusate Sodium 100 mg 02/04/18 21:00 02/05/18 08:53 Colace PO 100 mg BID VERONIKA Administration Lactated Ringer's 1,000 mls @ 30 mls/hr 02/04/18 06:30 Lr 1000 Ml Inj IV.SIG 02/07/18 06:23 .Q24H VERONIKA Sodium Chloride 500 mls @ 30 mls/hr 02/04/18 07:00 Ns Inj IV.SIG 02/07/18 06:23 .Q10H VERONIKA Sodium Chloride 1,000 mls @ 125 mls/hr 02/04/18 11:00 02/04/18 14:15 Ns Inj IV.SIG 125 mls/hr .Q10H VERONIKA Infusion Vancomycin HCl 1,000 mg/ 250 mls @ 250 mls/hr 02/04/18 16:00 02/04/18 16:43 Sodium Chloride IV.SIG 250 mls/hr Q24H VERONIKA Administration Gentamicin Sulfate 300 mg/ 107.5 mls @ 100 mls/hr 02/04/18 20:00 02/04/18 21: 59 Sodium Chloride IV.SIG 100 mls/hr Q24H VERONIKA Administration Ketorolac Tromethamine 15 mg 02/04/18 10:54 02/04/18 11:15 Toradol Inj IV.PUSH 02/08/18 10:53 15 mg Q6H PRN Administration ABDOMINAL PAIN Metoprolol Tartrate 25 mg 02/04/18 06:30 Lopressor PO 02/07/18 06:23 HOOD FITTER [facility] Morphine Sulfate 4 mg 02/04/18 10:46 Morphine Inj IV.PUSH Q4H PRN BREAKTHROUGH PAIN Ondansetron HCl 4 mg 02/04/18 10:47 Zofran Odt SL Q6H PRN NAUSEA OR VOMITING Oxycodone/Acetaminophen 2 tab 02/04/18 10:46 02/05/18 13:29 Percocet 5/325 Mg PO 2 tab Q4H PRN Administration PAIN SCALE 6 TO 10 Pantoprazole Sodium 40 mg 02/04/18 11:00 02/05/18 11:34 Protonix Inj IV.PUSH 40 mg Q24H VERONIKA Administration Patient Own 1 each 02/04/18 11:00 Medication - ( INH Arformoterol [ BID VERONIKA Arformoterol] 15 Mcg ) Povidone Iodine 1 applicatio 02/04/18 06:30 Betadine 5% Antisepsis Kit EACH NARE 02/07/18 06:23 HOOD FITTER [facility] Sertraline HCl 150 mg 02/05/18 09:00 02/05/18 08:53 Zoloft PO 150 mg DAILY VERONIKA Administration Objective Remarks: NAD Rest not labored RRR Abd soft NT, slightly distended [place] in place Assessment and Plan - Plan POD #1 s/p open prostatectomy, diverticulectomy ( bladder) ureteral reimplantation - Continue management as per ICU team - Monitor for V tach or other arrhytmia - Advance diet to regular - Pain management prn - Continue antbx - Incentive spirometer ordered. -OOB to ambulate as tolerated - US doppler for leg pain ordered - Resp therapy consult for evaluating and ordering nebulizer therapy due to pt doing it at home twice a day Urology will continue to monitor
[2018-02-05] MEDS: Vancomycin Inj 1,000 MG in Sodium Chlor 0.9% Inj 250 ML IV.SIG SCH (16:14)
[2018-02-05] MEDS: Gentamicin Inj 300 MG in Sodium Chlor 0.9% Inj 100 ML IV.SIG SCH (21:22)
[2018-02-06] MEDS: Docusate Sodium 100 MG Capsule PO SCH ×2 (08:20→20:27)
[2018-02-06] MEDS: Sertraline 50 MG Tablet PO SCH (08:20)
[2018-02-06] MEDS: Pantoprazole Inj 40 MG Vial IV.PUSH SCH (10:57)
--- NOTE | 2018-02-06 12:06 | US ---
EXAM DATE: 02/06/2018 11:54 AM EDT AGE/SEX: 82 years / Male INDICATIONS: Post/op left leg pain around knee area. CLINICAL DATA: This is the patient's initial encounter. Patient reports that signs and symptoms have been present for 2 days and indicates a pain score of 4/10. MEDICAL/SURGICAL HISTORY: Chronic obstructive pulmonary disease. Gastroesophageal reflux disea se. Basal cell carcinoma. Arthritis. Left kidney cyst. Enlarged prostate. Left nephrolithiasis. Myelo proliferative disease. Cholecystectomy. Appendectomy. Inguinal hernia repair. Urinary catheter. N braydon surgery. COMPARISON: No prior exams available for comparison. TECHNIQUE: Venous ultrasound of both lower extremities was performed from the inguinal ligament to t he proximal calf. Real-time, color Doppler and spectral tracing, compression and augmentation techni ques were used. FINDINGS: Right Leg: There is no evidence of occlusive deep venous thrombosis from the common femoral vein herlinda n to the popliteal vein. However there is some nonocclusive thrombus seen in the posterior tibial vei n just below the level of the knee. The peroneal vein is patent. Left Leg: Normal compression of the deep venous system from the inguinal region to the proximal calf . No echogenic clot is seen. Normal response of the venous system to augmentation and respiration. Other: None. CONCLUSION: 1. No evidence of DVT of the left lower extremity. 2. Nonocclusive DVT in the right posterior tibial vein just below the knee. No evidence of DVT from the popliteal vein at the level of the right knee up into the right pelvis. Electronically signed by: Allan Campbell MD 02/06/2018 12:05 PM EDT
--- NOTE | 2018-02-06 14:05 | P.PNURO ---
Subjective Patient symptoms today: POD#2. Pt was seen at the bedside. no new c/o. Had BM Tolerating regular diet well. no issues with ambulation. no f/c/n/v, no hematuria, urine is clear yellow. Denies any leg pain. Doppler did not show any obstructive clots in his legs. Pt would like to go home today Objective Vital Signs: Vital Signs 02/05/18 14:00 02/05/18 16:00 02/05/18 18:00 Temperature 98.1 F Pulse Rate 84 84 86 Respiratory Rate 30 H Blood Pressure 132/59 L Pulse Oximetry 95 02/05/18 20:00 02/05/18 22:00 02/06/18 00:00 Temperature 98.2 F Pulse Rate 85 82 73 Respiratory Rate 21 Blood Pressure 135/63 136/63 Pulse Oximetry 96 88 L 02/06/18 02:00 02/06/18 04:00 02/06/18 06:00 Temperature 97.4 F L Pulse Rate 76 74 68 Respiratory Rate 19 Blood Pressure 132/63 Pulse Oximetry 98 02/06/18 08:00 02/06/18 10:00 02/06/18 12:00 Temperature 97.9 F 98.1 F Pulse Rate 78 86 83 Respiratory Rate 27 H 21 Blood Pressure 111/60 166/67 H Pulse Oximetry 93 L 94 L Intake & Output 02/05/18 02/06/18 02/06/18 18:59 06:59 18:59 Intake Total 650 / 650 607.5 / 607.5 Output Total 2555 / 2555 1425 / 1425 Balance -1905 / -1905 -817.5 / -817.5 Weight 85.6 kg Intake: IV 107.5 / 107.5 Gentamicin Inj 300 MG In NS Inj 107.5 / 107.5 100 ML @ 100 mls/hr IV.SIG Q24H VERONIKA Rx#:[id number] Oral 650 / 650 500 / 500 Output: Urine Amount (Catheter) 2500 / 2500 1425 / 1425 Indwelling Urethral Catheter 2500 / 2500 1425 / 1425 Wound Drainage 55 / 55 Abdomen TIERNEY Drain 55 / 55 Other: Date of Last Bowel Movement 02/06/18 02/06/18 # Bowel Movements 1 Result Diagrams: 02/05/18 07:08 02/05/18 07:08 Imaging: Impressions Venous Doppler Study 02/06/18 00:00 CONCLUSION: 1. No evidence of DVT of the left lower extremity. 2. Nonocclusive DVT in the right posterior tibial vein just below the knee. No evidence of DVT from the popliteal vein at the level of the right knee up into the right pelvis. Medications and IVs: Active Medications Generic Name Dose Route Start Last Admin Trade Name Freq PRN Reason Stop Dose Admin Albuterol 2 puff 02/04/18 11:30 Ventolin Hfa Inh INH Q6H PRN Shortness Of Breath Belladonna Alkaloids/Opium 60 mg 02/04/18 10:52 02/04/18 11:00 B & O Supp RECTAL 60 mg Q6HR PRN Administration BLADDER SPASM Chlorhexidine Gluconate 3 pack 02/04/18 06:30 Chlorhexidine 2% Cloth TOPICAL 02/07/18 06:23 FIRE SAFETY DIRECTOR [facility] Docusate Sodium 100 mg 02/04/18 21:00 02/06/18 08:20 Colace PO 100 mg BID VERONIKA Administration Lactated Ringer's 1,000 mls @ 30 mls/hr 02/04/18 06:30 Lr 1000 Ml Inj IV.SIG 02/07/18 06:23 .Q24H VERONIKA Vancomycin HCl 1,000 mg/ 250 mls @ 250 mls/hr 02/04/18 16:00 02/05/18 16:14 Sodium Chloride IV.SIG 250 mls/hr Q24H VERONIKA Administration Gentamicin Sulfate 300 mg/ 107.5 mls @ 100 mls/hr 02/04/18 20:00 02/05/18 22: 27 Sodium Chloride IV.SIG Infused Q24H [facility] Infusion Ketorolac Tromethamine 15 mg 02/04/18 10:54 02/04/18 11:15 Toradol Inj IV.PUSH 02/08/18 10:53 15 mg Q6H PRN Administration ABDOMINAL PAIN Metoprolol Tartrate 25 mg 02/04/18 06:30 Lopressor PO 02/07/18 06:23 [employer] S[employer] DIRECTOR [facility] Morphine Sulfate 4 mg 02/04/18 10:46 Morphine Inj IV.PUSH Q4H PRN BREAKTHROUGH PAIN Ondansetron HCl 4 mg 02/04/18 10:47 Zofran Odt SL Q6H PRN NAUSEA OR VOMITING Oxycodone/Acetaminophen 2 tab 02/04/18 10:46 02/06/18 02:19 Percocet 5/325 Mg PO 2 tab Q4H PRN Administration PAIN SCALE 6 TO 10 Pantoprazole Sodium 40 mg 02/07/18 09:00 Protonix PO DAILY [facility] Patient Own 1 each 02/04/18 11:00 Medication - ( INH Arformoterol [ BID VERONIKA Arformoterol] 15 Mcg ) Povidone Iodine 1 applicatio 02/04/18 06:30 Betadine 5% Antisepsis Kit EACH NARE 02/07/18 06:23 [employer] SAF[employer] DIRECTOR [facility] Sertraline HCl 150 mg 02/05/18 09:00 02/06/18 08:20 Zoloft PO 150 mg DAILY VERONIKA Administration Objective Remarks: NAD Resp not labored, no wheezing RRR Abd soft NT, ND. TIERNEY drain is in place [place] in place Assessment and Plan - Plan POD #2 s/p open prostatectomy, diverticulectomy ( bladder) ureteral reimplantation - Continue management as per ICU team - OOB and ambulate - Labs this afternoon done f/u on results - Reg Diet - Repeat TIERNEY cr tomorrow and if ok , remove drain Pt feels good and would like to go home -possibly d/c tomorrow with [place]
[2018-02-06] MEDS: Vancomycin Inj 1,000 MG in Sodium Chlor 0.9% Inj 250 ML IV.SIG SCH (15:19)
[2018-02-06 15:38] LABS: Baso # (Auto) 0.4 th/mm3 (0.0-0.2); Baso % (Auto) 1.3 % (0.0-2.0); Eos # (Auto) 0.6 th/mm3 (0.0-0.4); Eos % (Auto) 2.4 % (0.0-4.0); Hemoglobin 10.1 gm/dL (13.0-17.0); Lymph # (Auto) 1.8 th/mm3 (1.0-4.8); Lymph % (Auto) 6.5 % (9.0-44.0); Mean Corpuscular HGB Conc 31.6 % (32.0-36.0); Mean Corpuscular Hemoglobin 23.6 pg (27.0-34.0); Mean Corpuscular Volume 74.6 fL (80.0-100.0); Mean Platelet Volume 9.5 fL (7.0-11.0); Mono # (Auto) 2.3 th/mm3 (0.0-0.9); Mono % (Auto) 8.7 % (0.0-8.0); Neut # (Auto) 21.8 th/mm3 (1.8-7.7); Neut % (Auto) 81.1 % (16.0-70.0); Platelet Count 333 th/mm3 (150-450); Red Blood Count 4.29 mil/mm3 (4.50-5.90); Red Cell Distribution Width 18.3 % (11.6-17.2); White Blood Count 26.9 th/mm3 (4.0-11.0)
[2018-02-06 16:07] LABS: Calcium 8.1 mg/dL (8.5-10.1); Carbon Dioxide 25.9 meq/L (21.0-32.0); Potassium 3.8 meq/L (3.5-5.1)
[2018-02-06 17:16] LABS: Eosinophils 2 % (0-4); Lymphocytes 5 % (9-44); Metamyelocytes 1 % (0-1); Monocytes 7 % (0-8); Myelocytes 1 % (0-0)
[2018-02-06 17:17] LABS: Ovalocytes 2+
[2018-02-06 17:19] LABS: Platelet Estimate Normal (Normal); Platelet Morphology Normal (Normal)
[2018-02-06] MEDS: Gentamicin Inj 300 MG in Sodium Chlor 0.9% Inj 100 ML IV.SIG SCH (20:27)
[2018-02-07] MEDS: Ketorolac Inj 30 MG/ML (IVP) Vial IV.PUSH PRN (01:04)
[2018-02-07 07:13] LABS: Baso # (Auto) 0.2 th/mm3 (0.0-0.2); Baso % (Auto) 0.7 % (0.0-2.0); Eos # (Auto) 0.7 th/mm3 (0.0-0.4); Eos % (Auto) 3.3 % (0.0-4.0); Hematocrit 30.2 % (39.0-51.0); Hemoglobin 9.6 gm/dL (13.0-17.0); Lymph # (Auto) 1.9 th/mm3 (1.0-4.8); Lymph % (Auto) 8.6 % (9.0-44.0); Mean Corpuscular HGB Conc 31.6 % (32.0-36.0); Mean Corpuscular Hemoglobin 23.7 pg (27.0-34.0); Mean Platelet Volume 9.2 fL (7.0-11.0); Mono % (Auto) 9.2 % (0.0-8.0); Neut # (Auto) 17.3 th/mm3 (1.8-7.7); Neut % (Auto) 78.2 % (16.0-70.0); Platelet Count 298 th/mm3 (150-450); Red Blood Count 4.03 mil/mm3 (4.50-5.90); Red Cell Distribution Width 18.1 % (11.6-17.2); White Blood Count 22.1 th/mm3 (4.0-11.0)
[2018-02-07 07:29] LABS: Calcium 8.1 mg/dL (8.5-10.1); Carbon Dioxide 29.6 meq/L (21.0-32.0)
[2018-02-07] MEDS: Sertraline 50 MG Tablet PO SCH (09:35)
[2018-02-07] MEDS: Docusate Sodium 100 MG Capsule PO SCH (09:35)
[2018-02-07 09:39] LABS: Eosinophils 4 % (0-4); Lymphocytes 11 % (9-44); Metamyelocytes 1 % (0-1); Monocytes 5 % (0-8); Ovalocytes 2+; Platelet Estimate Normal (Normal); Platelet Morphology Normal (Normal)
--- NOTE | 2018-02-07 14:19 | P.PNURO ---
Subjective Patient symptoms today: Pt was seen at bedside this afternoon. no acute events overnight. no pain, Ambulates and tolerates diet well. no f/c/n/v. no hematuria. +BM. TIERNEY drain output is small. Clark is in place. Labs are stable and improving. TIERNEY Cr is still pending for today. Pt would like to go home today Objective Vital Signs: Vital Signs 02/06/18 16:00 02/06/18 18:00 02/06/18 20:00 Temperature 98 F 98.1 F Pulse Rate 78 83 78 Respiratory Rate 26 H 26 H Blood Pressure 137/68 145/87 H Pulse Oximetry 94 L 97 02/06/18 20:43 02/06/18 22:00 02/07/18 00:00 Temperature 98.3 F Pulse Rate 76 79 Respiratory Rate 24 Blood Pressure 158/74 H Pulse Oximetry 96 97 02/07/18 02:00 02/07/18 04:00 02/07/18 06:00 Temperature 98.2 F Pulse Rate 74 70 72 Respiratory Rate 21 Blood Pressure 130/67 Pulse Oximetry 98 02/07/18 08:00 02/07/18 10:00 Temperature 98.4 F Pulse Rate 66 66 Respiratory Rate 14 Blood Pressure 155/71 H Pulse Oximetry 98 98 Intake & Output 02/06/18 02/07/18 02/07/18 18:59 06:59 18:59 Intake Total 9100 / 9100 587.5 / 587.5 Output Total 3020 / 3020 193 / 193 Balance 6080 / 6080 -1347.5 / -1347.5 Weight 83.9 kg Intake: IV 107.5 / 107.5 Gentamicin Inj 300 MG In NS Inj 107.5 / 107.5 100 ML @ 100 mls/hr IV.SIG Q24H VERONIKA Rx#:[id number] Oral 1000 / 1000 480 / 480 Anesthesia Amount 5000 / 5000 Other 2200 / 2200 Mass Transfusion Protocol 900 / 900 Output: Estimated Blood Loss 2000 / 1999 Urine Amount (Catheter) 1000 / 1000 1924 / 1924 Indwelling Urethral Catheter 1000 / 1000 1924 Wound Drainage Abdomen TIERNEY Drain Other: Date of Last Bowel Movement 02/06/18 02/06/18 02/07/18 # Bowel Movements 4 1 Result Diagrams: 02/07/18 06:12 02/07/18 06:12 Medications and IVs: Active Medications Generic Name Dose Route Start Last Admin Trade Name Freq PRN Reason Stop Dose Admin Albuterol 2 puff 02/04/18 11:30 Ventolin Hfa Inh INH Q6H PRN Shortness Of Breath Belladonna Alkaloids/Opium 60 mg 02/04/18 10:52 02/04/18 11:00 B & O Supp RECTAL 60 mg Q6HR PRN Administration BLADDER SPASM Docusate Sodium 100 mg 02/04/18 21:00 02/07/18 09:35 Colace PO 100 mg BID VERONIKA Administration Vancomycin HCl 1,000 mg/ 250 mls @ 250 mls/hr 02/04/18 16:00 02/06/18 16:44 Sodium Chloride IV.SIG 250 mls/hr Q24H VERONIKA Infusion Gentamicin Sulfate 300 mg/ 107.5 mls @ 100 mls/hr 02/04/18 20:00 02/06/18 22: 36 Sodium Chloride IV.SIG Infused Q24H VERONIKA Infusion Ketorolac Tromethamine 15 mg 02/04/18 10:54 02/07/18 01:04 Toradol Inj IV.PUSH 02/08/18 10:53 15 mg Q6H PRN Administration ABDOMINAL PAIN Morphine Sulfate 4 mg 02/04/18 10:46 Morphine Inj IV.PUSH Q4H PRN BREAKTHROUGH PAIN Ondansetron HCl 4 mg 02/04/18 10:47 Zofran Odt SL Q6H PRN NAUSEA OR VOMITING Oxycodone/Acetaminophen 2 tab 02/04/18 10:46 02/06/18 14:29 Percocet 5/325 Mg PO 2 tab Q4H PRN Administration PAIN SCALE 6 TO 10 Pantoprazole Sodium 40 mg 02/07/18 09:00 02/07/18 09:35 Protonix PO 40 mg DAILY VERONIKA Administration Patient Own 1 each 02/04/18 11:00 Medication - ( INH Arformoterol [ BID VERONIKA Arformoterol] 15 Mcg ) Sertraline HCl 150 mg 02/05/18 09:00 02/07/18 09:35 Zoloft PO 150 mg DAILY VERONIKA Administration Objective Remarks: NAD Resp not labored, no wheezing RRR Abd soft NT, ND. TIERNEY drain is in place Clark in place Assessment and Plan - Plan POD #3 s/p open prostatectomy, diverticulectomy ( bladder) ureteral reimplantation - Transferred to the 6th floor from ICU - Ambulate as tolerated - Follow up on TIERNEY Cr results today and if normal remove TIERNEY drain and d/c home later today. He will go home with clark catheter
[2018-02-07] MEDS: Vancomycin Inj 1,000 MG in Sodium Chlor 0.9% Inj 250 ML IV.SIG SCH (15:54)
--- NOTE | 2018-03-13 08:26 | P.DS ---
Date of admission: 02/04/18 05:29 Primary care physician: Krista Primary Care Physician Attending physician on discharge: Evens Woodard Anticipated date of discharge: 02/07/18 Brief History from admission: 82 yo male h/o BPH with LUTS, bladder stones, bladder diverticulum presented for Retropubic Prostatectomy with Bladder Diverticulectomy. DS: Diagnosis - Discharge Diagnosis (1) BPH loc w urin obs/LUTS Status: Acute (2) Bladder stones Status: Acute (3) Bladder diverticulum Status: Acute (4) Hematuria Status: Acute DS: Medications - Discharge Medications Prescriptions: ciprofloxacin HCl [Cipro] 500 mg PO Q12H #14 tab oxycodone-acetaminophen [Percocet] 1 tab PO Q4-6H PRN #20 tab PRN Reason: Pain DS: Summary Hospital Course: 82 yo male was admitted following a complex Retropubic Prostatectomy, PArtial Cystectomy with left ureteral reimplant. He did well following the surgery. He was ambulating, tolerating a regular diet on POD #1. Drain output was minimal. There was no evidence of a urine leak so the drain was removed. His pain was well controlled. He was discharged home on POD #3 with clark catheter in place. - Time Spent with Patient Total time spent providing and/or coordinating discharge services: Greater than 30 minutes Results Procedures completed during hospitalization: 1. PArtial Cystectomy 2. Retropubic Prostatectomy 3. Left ureteral reimplant - Impressions ITS Impressions Venous Doppler Study 02/06/18 00:00 CONCLUSION: 1. No evidence of DVT of the left lower extremity. 2. Nonocclusive DVT in the right posterior tibial vein just below the knee. No evidence of DVT from the popliteal vein at the level of the right knee up into the right pelvis. Discharge Plan - Discharge Disposition Patient Disposition: 01 Discharge Home - Discharge Condition Condition: Stable - Discharge Order Discharge Orders: Discharge Order (Routine); Ordered 02/07/18 Ordered By: Jeff Pickard - Discharge Details Anticipated Discharge Date: 02/07/18 - Physicians Team Primary Care Provider: Primary Care Krista Galdamez Attending Provider: Evens Woodard Other Providers: [employer] - Rxs /Orders / Referrals /Forms Prescriptions: New albuterol sulfate [Ventolin HFA] 90 mcg/actuation Hfa Aerosol Inhaler 2 puff INH Q6H PRN (Reason: Shortness Of Breath) RF: 0 ciprofloxacin HCl [Cipro] 500 mg Tablet 500 mg PO Q12H Qty: 14 RF: 0 oxycodone-acetaminophen [Percocet] 5-325 mg Tablet 1 tab PO Q4-6H PRN (Reason: Pain) Qty: 20 RF: 0 pantoprazole 40 mg Tablet,Delayed Release (Dr/Ec) 40 mg PO DAILY RF: 0 Continue albuterol sulfate [Ventolin HFA] 90 mcg/actuation Hfa Aerosol Inhaler 2 puff INHALATION Q6H PRN (Reason: Shortness Of Breath) arformoterol 15 mcg/2 mL Solution For Nebulization 12 mcg INHALATION Q12H doxazosin 8 mg Tablet Extended Release 24hr 8 mg PO DAILY finasteride 5 mg Tablet 5 mg PO DAILY sertraline 100 mg Tablet 150 mg PO DAILY Referrals: Primary Care Krista Galdamez [Primary Care Provider] - See Instructions - Discharge Instructions Patient Printed Instructions: Laser Prostatectomy (DC) Additional Instructions: Pt is going home with clark catheter and leg bag as well as bedside urine bag FOLLOW UP WITH DR. WOODARD IN 2 WEEKS. KEEP YOUR APPOINTMENT SCHEDULED. FOLLOW UP WITH YOUR PRIMARY CARE PROVIDER IN 3-4 DAYS. - Post Discharge Care Plan Care Plan Goals: Your Health Problems: Goals to Promote Your Health: * To prevent worsening of your condition * To maintain your health at the optimal level Directions to Meet Your Goals: * Take your medications as prescribed * Follow your dietary instruction * Follow activity as directed * Keep your appointments as scheduled * Take your immunizations and boosters as scheduled * If your symptoms worsen call your PCP * If no PCP go to Urgent Care or Emergency Room Smoking is dangerous to your health. Avoid second hand smoke. You may reach the 24-hour crisis hotline for domestic abuse at .
== END 2018-02-07 21:04 | disposition home or self-care (01) ==
LOC: HSDI 05:29 → N03 14:35 → N06 02-07 11:05
PROVIDERS: ADMIT Urology; ATTEND Urology